=== PATIENT | male | born 1990 | race African-American/Black ===

== ENCOUNTER 2017-08-21 11:36 | Inpatient (IN) | payer MEDICAID ==
[~2017-08-21] VITALS: Ht 188 cm; Wt 88.9 kg
[2017-08-21] MEDS ORDERED: HALOPERIDOL LACTATE 5 MG/ML VIAL IM ONE (13:15)
[2017-08-21] MEDS ORDERED: DiphenhydrAMINE HCL 50 MG/ML VIAL IM ONE (13:15)
[2017-08-21] MEDS ORDERED: LORazepam 2 MG/ML VIAL IM ONE (13:15)
[2017-08-21 14:20] LABS: BASOPHILS % (AUTO) 1.1 % (0.0-2.0); HEMATOCRIT 39.7 % (41-53); HEMOGLOBIN 14.1 g/dL (13.5-17.5); LYMPHOCYTES # (AUTO) 1.5 K/uL (1.0-4.8); LYMPHOCYTES % (AUTO) 33.9 % (22.0-44.0); MEAN CORPUSCULAR HEMOGLOBIN 32.4 pg (26.0-34.0); MEAN CORPUSCULAR HGB CONC 35.4 G/dL (31.0-37.0); MEAN CORPUSCULAR VOLUME 92 fL (80-100); MONOCYTES # (AUTO) 0.5 K/uL (0.1-1.0); MONOCYTES % (AUTO) 10.6 % (2.0-9.0); NEUTROPHILS # (AUTO) 2.4 K/uL (1.8-7.7); NEUTROPHILS % (AUTO) 53.4 % (40.0-70.0); PLATELET COUNT (AUTO) 176 K/uL (150-450); RED BLOOD CELL COUNT(AUTO) 4.34 MIL/uL (4.50-5.90); RED CELL DISTRIBUTION WIDTH 13.4 % (11.5-14.5)
[2017-08-21] MEDS ORDERED: ZOLPIDEM TARTRATE 10 MG TABLET PO PRN (14:30)
[2017-08-21] MEDS ORDERED: HALOPERIDOL 5 MG TABLET PO PRN (14:30)
[2017-08-21 14:39] LABS: ANION GAP 7 mmol/L (8-16); CALCIUM, TOTAL 8.4 mg/dL (8.8-10.5); CARBON DIOXIDE 29 mmol/L (22-29); CHLORIDE 104 mmol/L (98-107); GLOMERULAR FILTR. RATE CALC > 60 mL/min (>60); GLUCOSE,RANDOM 84 mg/dL (70-110); POTASSIUM 3.5 mmol/L (3.5-5.1); SODIUM SERUM 140 mmol/L (136-145); UREA NITROGEN, BLOOD 17 mg/dL (7-18)
[2017-08-21 14:46] LABS: ALANINE AMINOTRANSFERASE 26 U/L (12-78); ALBUMIN 3.7 g/dL (3.4-5.0); ALKALINE PHOSPHATASE 44 U/L (46-116); ASPARTATE AMINOTRANSFERASE 19 U/L (15-37); BILIRUBIN,TOTAL 1.8 mg/dL (0.1-1.0); TOTAL PROTEIN, SERUM 6.7 g/dL (6.4-8.2)
[2017-08-22 01:21] LABS: AMPHET/METH SCREEN,URINE POSITIVE (NEGATIVE); BARBITURATE SCREEN, URINE NEGATIVE (NEGATIVE); BENZODIAZEPINES SCREEN,URINE NEGATIVE (NEGATIVE); CANNABINOID SCREEN,URINE POSITIVE (NEGATIVE); COCAINE SCREEN,URINE NEGATIVE (NEGATIVE); METHADONE SCREEN, URINE NEGATIVE (NEGATIVE); OPIATE SCREEN,URINE NEGATIVE (NEGATIVE)
[2017-08-22 01:23] LABS: PHENCYCLIDINE SCREEN,URINE NEGATIVE (NEGATIVE)
[2017-08-22 09:47] LABS: CHOLESTEROL 119 mg/dL (131-200); HDL CHOLESTEROL 59 mg/dL (40-60); LDL CHOL (CALC.) 56 mg/dL (0-130); TRIGLYCERIDES 21 mg/dL (15-150)
[2017-08-22 17:11] VITALS: BP 108/74
[2017-08-23 04:49] VITALS: BP 130/72
[2017-08-23 08:09] VITALS: BP 129/69
[2017-08-23] MEDS: OLANZapine 5 MG TABLET PO SCH ×2 (12:37→20:45)
[2017-08-23] MEDS ORDERED: ACETAMINOPHEN 325 MG TABLET PO PRN (14:15)
[2017-08-23] MEDS ORDERED: IBUPROFEN 600 MG TABLET PO PRN (14:15)
[2017-08-23 16:00] VITALS: BP 111/66
[2017-08-23] MEDS: LORazepam 2 MG TABLET PO PRN (16:35)
[2017-08-23] MEDS: AMOX TR/POT CLAV 875 MG/125 MG TABLET PO SCH (16:35)
[2017-08-24 06:16] VITALS: BP 118/76
[2017-08-24 08:19] VITALS: BP 120/79
[2017-08-24] MEDS: AMOX TR/POT CLAV 875 MG/125 MG TABLET PO SCH ×2 (08:31→16:46)
[2017-08-24] MEDS: LORazepam 2 MG TABLET PO PRN ×2 (08:31→16:46)
[2017-08-24] MEDS: OLANZapine 5 MG TABLET PO SCH ×2 (08:31→20:49)
[2017-08-24 16:00] VITALS: BP 116/76
[2017-08-25 00:43] VITALS: BP 103/65
[2017-08-25] MEDS: OLANZapine 5 MG TABLET PO SCH ×2 (08:34→09:30)
[2017-08-25] MEDS: AMOX TR/POT CLAV 875 MG/125 MG TABLET PO SCH ×2 (08:34→17:23)
[2017-08-25 08:49] VITALS: BP 139/64
[2017-08-25 16:31] VITALS: BP 114/58
[2017-08-25] MEDS: LORazepam 2 MG TABLET PO PRN (17:23)
[2017-08-25] MEDS: OLANZapine 10 MG TABLET PO SCH (20:52)
[2017-08-26 04:44] VITALS: BP 117/69
[2017-08-26 08:12] VITALS: BP 123/59
[2017-08-26] MEDS: AMOX TR/POT CLAV 875 MG/125 MG TABLET PO SCH ×2 (08:30→16:41)
[2017-08-26] MEDS: OLANZapine 5 MG TABLET PO SCH (08:31)
[2017-08-26 16:05] VITALS: BP 132/63
[2017-08-26] MEDS: LORazepam 2 MG TABLET PO PRN (16:41)
[2017-08-26] MEDS: OLANZapine 10 MG TABLET PO SCH (20:14)
[2017-08-27 01:35] VITALS: BP 128/70
[2017-08-27 08:10] VITALS: BP 120/65
[2017-08-27] MEDS: AMOX TR/POT CLAV 875 MG/125 MG TABLET PO SCH ×2 (08:30→16:41)
[2017-08-27] MEDS: OLANZapine 5 MG TABLET PO SCH (08:30)
[2017-08-27 16:00] VITALS: BP 114/89
[2017-08-27] MEDS: LORazepam 2 MG TABLET PO PRN (16:41)
[2017-08-27] MEDS: OLANZapine 10 MG TABLET PO SCH (20:33)
[2017-08-28 03:44] VITALS: BP 126/73
[2017-08-28 08:12] VITALS: BP 137/60
[2017-08-28] MEDS: OLANZapine 5 MG TABLET PO SCH (08:39)
[2017-08-28] MEDS: AMOX TR/POT CLAV 875 MG/125 MG TABLET PO SCH ×2 (08:40→16:24)
[2017-08-28] MEDS: LORazepam 2 MG TABLET PO PRN (08:40)
[2017-08-28 17:18] VITALS: BP 137/82
[2017-08-28] MEDS ORDERED: OLAN10TA3 PO (17:59)
[2017-08-28] MEDS ORDERED: OLAN5TAB2 PO (17:59)
== END 2017-08-28 18:30 | disposition home or self-care (01) | DRG 750 ==
LOC: EMS 11:38 → B3A 08-22 14:45
DX: F20.0 Paranoid schizophrenia (principal); Z78.1 Physical restraint status; F15.10 Other stimulant abuse, uncomplicated; E80.6 Other disorders of bilirubin metabolism; F12.10 Cannabis abuse, uncomplicated; Z59.0 Homelessness; Z79.899 Other long term (current) drug therapy
CPT/HCPCS: 87081; 96372; 99285; G0480; J1200; J1630; J2060